=== PATIENT | female | born 1930 | race Caucasian/White ===

== ENCOUNTER 2017-12-20 18:21 | Inpatient (IN) | payer MEDICARE, OTHER ==
[2017-12-20] MEDS: HYDROCORTISONE 2.5% 30 GM RECT CR PR (22:12)
[2017-12-20] MEDS: ATORVASTATIN 20 MG TAB GTB (22:12)
[2017-12-20] MEDS ORDERED: ONDANSETRON 4 MG TAB GTB (22:30)
[2017-12-20] MEDS ORDERED: ALBUTEROL 0.083% (NEB) 2.5 MG/3 ML AMP HHN (22:30)
[2017-12-20 23:33] LABS: ADD UMIC YES; UR ASCORBIC ACID 40 mg/dL (NEGATIVE); UR BILIRUBIN (Dip) NEGATIVE (NEGATIVE); UR BLOOD (Dip) NEGATIVE (NEGATIVE); UR CLARITY CLEAR (CLEAR); UR COLOR YELLOW (YELLOW); UR GLUCOSE (Dip) NEGATIVE (NEGATIVE); UR KETONES (Dip) NEGATIVE (NEGATIVE); UR LEUKOCYTE ESTERASE (Dip) NEGATIVE Leu/ul (NEGATIVE); UR MUCUS FEW /HPF (NONE SEEN); UR NITRITE (Dip) NEGATIVE (NEGATIVE); UR RBC 3 /HPF (0-5); UR SPECIFIC GRAVITY (Dip) 1.025 (1.003-1.030); UR TOTAL PROTEIN (Dip) 1+ mg/dl (NEGATIVE); UR UROBILINOGEN (Dip) NEGATIVE (NEGATIVE); UR WBC 6 /HPF (0-5)
[2017-12-21] MEDS: FUROSEMIDE 20 MG INJ IV (06:00)
[2017-12-21] MEDS: PANTOPRAZOLE (EC) 40 MG TAB PO (06:51)
[2017-12-21] MEDS: HYDROCODONE/APAP (5/325) TAB GTB (06:51)
[2017-12-21 08:16] LABS: ADD MAN DIFF? NO
[2017-12-21 08:22] LABS: BASOPHIL # 0.1 10^3/ul (0.0-0.1); BASOPHILS % 0.6 % (0.0-2.0); EOSINOPHILS # 0.5 10^3/ul (0.0-0.5); EOSINOPHILS % 4.5 % (0.0-7.0); HEMATOCRIT 35.6 % (37.0-47.0); HEMOGLOBIN 11.4 g/dl (12.0-16.0); LYMPHOCYTES # 2.5 10^3/ul (0.8-2.9); LYMPHOCYTES % 22.4 % (15.0-51.0); MEAN CORPUSCULAR HEMOGLOBIN 30.7 pg (29.0-33.0); MEAN PLATELET VOLUME 11.5 fl (7.4-10.4); MONOCYTE # 0.8 10^3/ul (0.3-0.9); MONOCYTES % 6.9 % (0.0-11.0); NEUTROPHIL # 7.1 10^3/ul (1.6-7.5); NEUTROPHILS % 64.3 % (39.0-77.0); PLATELET COUNT 506 10^3/UL (140-415); RED BLOOD COUNT 3.71 10^6/ul (4.20-5.40); RED CELL DISTRIBUTION WIDTH 13.6 % (11.5-14.5)
[2017-12-21 08:41] LABS: ALANINE AMINOTRANSFERASE 84 IU/L (13-69); ALBUMIN 2.9 g/dl (3.3-4.9); ALKALINE PHOSPHATASE 157 IU/L (42-121); ANION GAP 10 (8-16); ASPARTATE AMINO TRANSFERASE 53 IU/L (15-46); BILIRUBIN,INDIRECT 0.1 mg/dl (0-1.1); BILIRUBIN,TOTAL 0.1 mg/dl (0.2-1.3); BLOOD UREA NITROGEN 41 mg/dl (7-20); CALCIUM 8.9 mg/dl (8.4-10.2); CARBON DIOXIDE 30 mmol/L (21-31); CHLORIDE 110 mmol/L (97-110); CREATININE 0.46 mg/dl (0.44-1.00); GLUCOSE 143 mg/dl (70-220); POTASSIUM 4.6 mmol/L (3.5-5.1); SODIUM 145 mmol/L (135-144); TOTAL PROTEIN 6.5 g/dl (6.1-8.1)
[2017-12-21] MEDS: HYDROCORTISONE 2.5% 30 GM RECT CR PR ×3 (09:23→21:12)
[2017-12-21] MEDS: POTASSIUM CHLORIDE 20 MEQ POWDER FOR ORAL SOLN GTB (09:23)
[2017-12-21] MEDS: SENNA TAB PO (09:24)
[2017-12-21] MEDS: AMLODIPINE 5 MG TAB GTB (09:24)
[2017-12-21] MEDS: ASPIRIN 81 MG TAB GTB (09:24)
[2017-12-21] MEDS: FUROSEMIDE 20 MG TAB GTB (09:24)
[2017-12-21] MEDS: ENOXAPARIN 40 MG/0.4 ML SYG SC (09:26)
[2017-12-21] MEDS ORDERED: ATORVASTATIN 20 MG TAB GTB (21:00)
[2017-12-21] MEDS: BALSAM PERU/CASTOR OIL 60 GM TUBE TOP (21:11)
[2017-12-21] MEDS: ATORVASTATIN 20 MG TAB GTB (21:11)
[2017-12-22] MEDS: ACETAMINOPHEN 650MG/20.3ML CUP GTB ×2 (03:40→21:07)
[2017-12-22] MEDS: PANTOPRAZOLE (EC) 40 MG TAB PO (06:00)
[2017-12-22 07:06] LABS: ADD MAN DIFF? NO
[2017-12-22 07:16] LABS: WHITE BLOOD COUNT 12.4 10^3/ul (4.8-10.8)
[2017-12-22 07:16] LABS: BASOPHILS % 0.3 % (0.0-2.0); EOSINOPHILS # 0.4 10^3/ul (0.0-0.5); EOSINOPHILS % 3.3 % (0.0-7.0); HEMATOCRIT 35.1 % (37.0-47.0); HEMOGLOBIN 11.3 g/dl (12.0-16.0); MEAN CORPUSCULAR HEMOGLOBIN 30.3 pg (29.0-33.0); MEAN CORPUSCULAR HGB CONC 32.2 g/dl (32.0-37.0); MEAN CORPUSCULAR VOLUME 94.1 fl (82.0-101.0); MEAN PLATELET VOLUME 11.3 fl (7.4-10.4); MONOCYTE # 0.8 10^3/ul (0.3-0.9); MONOCYTES % 6.3 % (0.0-11.0); NEUTROPHIL # 9.1 10^3/ul (1.6-7.5); PLATELET COUNT 488 10^3/UL (140-415); RED BLOOD COUNT 3.73 10^6/ul (4.20-5.40); RED CELL DISTRIBUTION WIDTH 13.9 % (11.5-14.5); RETICULOCYTE COUNT # 0.094 X10^6 (0.020-0.110); RETICULOCYTE COUNT % 2.5 % (0.5-1.5); RETICULOCYTE RBC 3.73
[2017-12-22 08:03] LABS: ALANINE AMINOTRANSFERASE 62 IU/L (13-69); ALBUMIN 3.1 g/dl (3.3-4.9); ALBUMIN/GLOBULIN RATIO 0.81; ALKALINE PHOSPHATASE 153 IU/L (42-121); ANION GAP 13 (8-16); ASPARTATE AMINO TRANSFERASE 43 IU/L (15-46); BILIRUBIN,INDIRECT 0.2 mg/dl (0-1.1); BILIRUBIN,TOTAL 0.2 mg/dl (0.2-1.3); BLOOD UREA NITROGEN 40 mg/dl (7-20); CALCIUM 8.9 mg/dl (8.4-10.2); CARBON DIOXIDE 30 mmol/L (21-31); CHLORIDE 105 mmol/L (97-110); CREATININE 0.45 mg/dl (0.44-1.00); GLUCOSE 131 mg/dl (70-220); POTASSIUM 4.5 mmol/L (3.5-5.1); SODIUM 143 mmol/L (135-144); TOTAL PROTEIN 6.9 g/dl (6.1-8.1)
[2017-12-22] MEDS: SENNA TAB PO (09:14)
[2017-12-22] MEDS: POTASSIUM CHLORIDE 20 MEQ POWDER FOR ORAL SOLN GTB (09:14)
[2017-12-22] MEDS: BALSAM PERU/CASTOR OIL 60 GM TUBE TOP ×2 (09:14→21:07)
[2017-12-22] MEDS: LANSOPRAZOLE 30 MG CAP GTB (09:14)
[2017-12-22] MEDS: ASPIRIN 81 MG TAB GTB (09:15)
[2017-12-22] MEDS: HYDROCORTISONE 2.5% 30 GM RECT CR PR ×3 (09:23→21:07)
[2017-12-22] MEDS: FUROSEMIDE 20 MG TAB GTB (09:25)
[2017-12-22] MEDS: AMLODIPINE 5 MG TAB GTB (09:25)
[2017-12-22] MEDS: ENOXAPARIN 40 MG/0.4 ML SYG SC (09:56)
[2017-12-22] MEDS: CEFEPIME 1GM/50 ML (PMX) 50 ML IVPB (17:10)
[2017-12-22] MEDS ORDERED: CEFEPIME 1GM/50 ML (PMX) 50 ML IVPB (21:00)
[2017-12-22] MEDS: ATORVASTATIN 20 MG TAB GTB (21:07)
[2017-12-23] MEDS: LANSOPRAZOLE 30 MG CAP GTB (06:06)
[2017-12-23] MEDS: ASPIRIN 81 MG TAB GTB (09:22)
[2017-12-23] MEDS: POTASSIUM CHLORIDE 20 MEQ POWDER FOR ORAL SOLN GTB (09:23)
[2017-12-23] MEDS: SENNA TAB PO (09:23)
[2017-12-23] MEDS: FUROSEMIDE 20 MG TAB GTB (09:23)
[2017-12-23] MEDS: AMLODIPINE 5 MG TAB GTB (09:23)
[2017-12-23] MEDS: HYDROCORTISONE 2.5% 30 GM RECT CR PR ×3 (09:24→21:22)
[2017-12-23] MEDS: BALSAM PERU/CASTOR OIL 60 GM TUBE TOP ×2 (09:24→21:21)
[2017-12-23] MEDS: ENOXAPARIN 40 MG/0.4 ML SYG SC (09:26)
[2017-12-23 17:15] LABS: OCCULT BLOOD STOOL NEGATIVE (NEGATIVE)
[2017-12-23] MEDS: CEFEPIME 1GM/50 ML (PMX) 50 ML IVPB (17:26)
[2017-12-23] MEDS: ATORVASTATIN 20 MG TAB GTB (20:47)
[2017-12-23] MEDS: ACETAMINOPHEN 650MG/20.3ML CUP GTB (20:47)
[2017-12-24] MEDS: LANSOPRAZOLE 30 MG CAP GTB (05:37)
[2017-12-24 07:01] LABS: ADD MAN DIFF? NO
[2017-12-24 07:04] LABS: WHITE BLOOD COUNT 10.9 10^3/ul (4.8-10.8)
[2017-12-24 07:04] LABS: BASOPHIL # 0.1 10^3/ul (0.0-0.1); BASOPHILS % 0.5 % (0.0-2.0); EOSINOPHILS # 0.4 10^3/ul (0.0-0.5); EOSINOPHILS % 3.9 % (0.0-7.0); HEMATOCRIT 34.4 % (37.0-47.0); HEMOGLOBIN 11.3 g/dl (12.0-16.0); LYMPHOCYTES % 18.1 % (15.0-51.0); MEAN CORPUSCULAR HEMOGLOBIN 31.1 pg (29.0-33.0); MEAN CORPUSCULAR HGB CONC 32.8 g/dl (32.0-37.0); MEAN CORPUSCULAR VOLUME 94.8 fl (82.0-101.0); MEAN PLATELET VOLUME 10.9 fl (7.4-10.4); MONOCYTE # 0.7 10^3/ul (0.3-0.9); MONOCYTES % 6.1 % (0.0-11.0); NEUTROPHIL # 7.6 10^3/ul (1.6-7.5); NEUTROPHILS % 69.5 % (39.0-77.0); PLATELET COUNT 475 10^3/UL (140-415); RED BLOOD COUNT 3.63 10^6/ul (4.20-5.40); RED CELL DISTRIBUTION WIDTH 13.5 % (11.5-14.5)
[2017-12-24 07:06] LABS: RETICULOCYTE COUNT # 0.099 X10^6 (0.020-0.110); RETICULOCYTE COUNT % 2.7 % (0.5-1.5)
[2017-12-24 07:06] LABS: RETICULOCYTE RBC 3.74
[2017-12-24 07:33] LABS: ALANINE AMINOTRANSFERASE 47 IU/L (13-69); ALBUMIN 2.9 g/dl (3.3-4.9); ALBUMIN/GLOBULIN RATIO 0.82; ALKALINE PHOSPHATASE 135 IU/L (42-121); ANION GAP 10 (8-16); ASPARTATE AMINO TRANSFERASE 32 IU/L (15-46); BILIRUBIN,INDIRECT 0.2 mg/dl (0-1.1); BILIRUBIN,TOTAL 0.2 mg/dl (0.2-1.3); BLOOD UREA NITROGEN 25 mg/dl (7-20); CALCIUM 8.6 mg/dl (8.4-10.2); CARBON DIOXIDE 27 mmol/L (21-31); CHLORIDE 106 mmol/L (97-110); CREATININE 0.41 mg/dl (0.44-1.00); GLUCOSE 119 mg/dl (70-220); POTASSIUM 4.1 mmol/L (3.5-5.1); SODIUM 139 mmol/L (135-144); TOTAL PROTEIN 6.4 g/dl (6.1-8.1)
[2017-12-24 08:02] LABS: PHOSPHORUS 3.2 mg/dl (2.5-4.9)
[2017-12-24 09:10] LABS: FOLATE > 20.0 ng/ml (2.8-20.0)
[2017-12-24] MEDS: POTASSIUM CHLORIDE 20 MEQ POWDER FOR ORAL SOLN GTB (09:16)
[2017-12-24] MEDS: ASPIRIN 81 MG TAB GTB (09:17)
[2017-12-24] MEDS: SENNA TAB PO (09:17)
[2017-12-24] MEDS: AMLODIPINE 5 MG TAB GTB (09:17)
[2017-12-24] MEDS: FUROSEMIDE 20 MG TAB GTB (09:18)
[2017-12-24] MEDS: ENOXAPARIN 40 MG/0.4 ML SYG SC (09:29)
[2017-12-24 10:04] LABS: IRON 46 ug/dl (35-150)
[2017-12-24 10:13] LABS: % IRON SATURATION 20 % SAT (22-52); TOTAL IRON BINDING CAPACITY 234 ug/dl (241-421)
[2017-12-24] MEDS: BALSAM PERU/CASTOR OIL 60 GM TUBE TOP ×2 (12:35→21:05)
[2017-12-24] MEDS: HYDROCORTISONE 2.5% 30 GM RECT CR PR ×3 (12:35→21:06)
[2017-12-24] MEDS: CEFEPIME 1GM/50 ML (PMX) 50 ML IVPB (17:23)
[2017-12-24] MEDS: ATORVASTATIN 20 MG TAB GTB (21:04)
[2017-12-24] MEDS: ACETAMINOPHEN 650MG/20.3ML CUP GTB (21:04)
[2017-12-25] MEDS: LANSOPRAZOLE 30 MG CAP GTB (05:41)
[2017-12-25] MEDS: ASPIRIN 81 MG TAB GTB (08:38)
[2017-12-25] MEDS: POTASSIUM CHLORIDE 20 MEQ POWDER FOR ORAL SOLN GTB (08:39)
[2017-12-25] MEDS: AMLODIPINE 5 MG TAB GTB (08:39)
[2017-12-25] MEDS: FUROSEMIDE 20 MG TAB GTB (08:39)
[2017-12-25] MEDS: SENNA TAB PO (08:42)
[2017-12-25] MEDS: ENOXAPARIN 40 MG/0.4 ML SYG SC (08:48)
[2017-12-25] MEDS: HYDROCORTISONE 2.5% 30 GM RECT CR PR ×3 (08:49→20:47)
[2017-12-25] MEDS: BALSAM PERU/CASTOR OIL 60 GM TUBE TOP ×2 (08:50→20:47)
[2017-12-25] MEDS: ACETAMINOPHEN 650MG/20.3ML CUP GTB ×2 (10:23→20:36)
[2017-12-25] MEDS: CEFEPIME 1GM/50 ML (PMX) 50 ML IVPB (16:26)
[2017-12-25] MEDS: ATORVASTATIN 20 MG TAB GTB (20:36)
[2017-12-26] MEDS: ACETAMINOPHEN 650MG/20.3ML CUP GTB ×3 (00:42→20:58)
[2017-12-26] MEDS: LANSOPRAZOLE 30 MG CAP GTB (06:11)
[2017-12-26 07:23] LABS: ADD MAN DIFF? NO
[2017-12-26 07:26] LABS: ALANINE AMINOTRANSFERASE 45 IU/L (13-69); ALBUMIN 3.5 g/dl (3.3-4.9); ALBUMIN/GLOBULIN RATIO 0.94; ALKALINE PHOSPHATASE 150 IU/L (42-121); ASPARTATE AMINO TRANSFERASE 41 IU/L (15-46); BILIRUBIN,INDIRECT 0.2 mg/dl (0-1.1); BILIRUBIN,TOTAL 0.2 mg/dl (0.2-1.3); BLOOD UREA NITROGEN 25 mg/dl (7-20); CALCIUM 9.3 mg/dl (8.4-10.2); CARBON DIOXIDE 29 mmol/L (21-31); CHLORIDE 103 mmol/L (97-110); CREATININE 0.42 mg/dl (0.44-1.00); GLUCOSE 102 mg/dl (70-220); SODIUM 138 mmol/L (135-144); TOTAL PROTEIN 7.2 g/dl (6.1-8.1)
[2017-12-26 07:27] LABS: BASOPHIL # 0.1 10^3/ul (0.0-0.1); BASOPHILS % 0.9 % (0.0-2.0); EOSINOPHILS # 0.4 10^3/ul (0.0-0.5); EOSINOPHILS % 3.6 % (0.0-7.0); HEMATOCRIT 36.4 % (37.0-47.0); HEMOGLOBIN 11.8 g/dl (12.0-16.0); LYMPHOCYTES # 2.4 10^3/ul (0.8-2.9); LYMPHOCYTES % 24.6 % (15.0-51.0); MEAN CORPUSCULAR HEMOGLOBIN 30.6 pg (29.0-33.0); MEAN CORPUSCULAR HGB CONC 32.4 g/dl (32.0-37.0); MEAN CORPUSCULAR VOLUME 94.3 fl (82.0-101.0); MEAN PLATELET VOLUME 10.8 fl (7.4-10.4); MONOCYTE # 0.8 10^3/ul (0.3-0.9); MONOCYTES % 8.6 % (0.0-11.0); NEUTROPHIL # 5.8 10^3/ul (1.6-7.5); NEUTROPHILS % 60.1 % (39.0-77.0); PLATELET COUNT 514 10^3/UL (140-415); RED BLOOD COUNT 3.86 10^6/ul (4.20-5.40); RED CELL DISTRIBUTION WIDTH 13.5 % (11.5-14.5)
[2017-12-26 07:27] LABS: WHITE BLOOD COUNT 9.7 10^3/ul (4.8-10.8)
[2017-12-26 07:36] LABS: ANION GAP 11 (8-16); POTASSIUM 4.6 mmol/L (3.5-5.1)
[2017-12-26] MEDS: HYDROCORTISONE 2.5% 30 GM RECT CR PR ×3 (09:00→20:59)
[2017-12-26] MEDS: BALSAM PERU/CASTOR OIL 60 GM TUBE TOP ×2 (09:00→20:59)
[2017-12-26] MEDS: POTASSIUM CHLORIDE 20 MEQ POWDER FOR ORAL SOLN GTB (11:38)
[2017-12-26] MEDS: ENOXAPARIN 40 MG/0.4 ML SYG SC (11:38)
[2017-12-26] MEDS: SENNA TAB PO (11:38)
[2017-12-26] MEDS: FUROSEMIDE 20 MG TAB GTB (11:39)
[2017-12-26] MEDS: AMLODIPINE 5 MG TAB GTB (11:39)
[2017-12-26] MEDS: ASPIRIN 81 MG TAB GTB (11:39)
[2017-12-26] MEDS: CEFEPIME 1GM/50 ML (PMX) 50 ML IVPB (18:13)
[2017-12-26] MEDS: ATORVASTATIN 20 MG TAB GTB (20:58)
[2017-12-27] MEDS: ACETAMINOPHEN 650MG/20.3ML CUP GTB ×2 (06:31→20:22)
[2017-12-27] MEDS: LANSOPRAZOLE 30 MG CAP GTB (06:32)
[2017-12-27] MEDS: SENNA TAB PO (09:00)
[2017-12-27] MEDS: HYDROCORTISONE 2.5% 30 GM RECT CR PR ×4 (09:00→20:22)
[2017-12-27] MEDS: POTASSIUM CHLORIDE 20 MEQ POWDER FOR ORAL SOLN GTB (09:30)
[2017-12-27] MEDS: AMLODIPINE 5 MG TAB GTB (09:31)
[2017-12-27] MEDS: FUROSEMIDE 20 MG TAB GTB (09:31)
[2017-12-27] MEDS: ASPIRIN 81 MG TAB GTB (09:31)
[2017-12-27] MEDS: ENOXAPARIN 40 MG/0.4 ML SYG SC (09:32)
[2017-12-27] MEDS: BALSAM PERU/CASTOR OIL 60 GM TUBE TOP ×2 (09:36→20:22)
[2017-12-27] MEDS: ATORVASTATIN 20 MG TAB GTB (20:22)
[2017-12-27] MEDS: GUAIFENESIN/DM 5ML CUP PO (20:33)
[2017-12-28] MEDS: LANSOPRAZOLE 30 MG CAP GTB (06:24)
[2017-12-28] MEDS: SENNA TAB PO (09:00)
[2017-12-28] MEDS: BALSAM PERU/CASTOR OIL 60 GM TUBE TOP ×2 (09:26→21:08)
[2017-12-28] MEDS: HYDROCORTISONE 2.5% 30 GM RECT CR PR ×3 (09:27→21:00)
[2017-12-28] MEDS: POTASSIUM CHLORIDE 20 MEQ POWDER FOR ORAL SOLN GTB (09:27)
[2017-12-28] MEDS: AMLODIPINE 5 MG TAB GTB (09:27)
[2017-12-28] MEDS: ASPIRIN 81 MG TAB GTB (09:27)
[2017-12-28] MEDS: FUROSEMIDE 20 MG TAB GTB (09:28)
[2017-12-28] MEDS: ENOXAPARIN 40 MG/0.4 ML SYG SC (09:29)
[2017-12-28 11:35] LABS: ADD MAN DIFF? NO
[2017-12-28 11:38] LABS: BASOPHIL # 0.1 10^3/ul (0.0-0.1); BASOPHILS % 0.6 % (0.0-2.0); EOSINOPHILS # 0.2 10^3/ul (0.0-0.5); EOSINOPHILS % 2.1 % (0.0-7.0); HEMATOCRIT 37.5 % (37.0-47.0); HEMOGLOBIN 12.2 g/dl (12.0-16.0); LYMPHOCYTES # 2.8 10^3/ul (0.8-2.9); LYMPHOCYTES % 26.2 % (15.0-51.0); MEAN CORPUSCULAR HEMOGLOBIN 30.4 pg (29.0-33.0); MEAN CORPUSCULAR HGB CONC 32.5 g/dl (32.0-37.0); MEAN CORPUSCULAR VOLUME 93.5 fl (82.0-101.0); MEAN PLATELET VOLUME 10.3 fl (7.4-10.4); MONOCYTE # 0.8 10^3/ul (0.3-0.9); MONOCYTES % 7.7 % (0.0-11.0); NEUTROPHIL # 6.6 10^3/ul (1.6-7.5); NEUTROPHILS % 61.7 % (39.0-77.0); PLATELET COUNT 510 10^3/UL (140-415); RED BLOOD COUNT 4.01 10^6/ul (4.20-5.40)
[2017-12-28 11:38] LABS: WHITE BLOOD COUNT 10.6 10^3/ul (4.8-10.8)
[2017-12-28 11:56] LABS: PHOSPHORUS 3.8 mg/dl (2.5-4.9)
[2017-12-28 11:56] LABS: MAGNESIUM 1.9 mg/dl (1.7-2.5)
[2017-12-28 11:57] LABS: ANION GAP 12 (8-16); BLOOD UREA NITROGEN 22 mg/dl (7-20); CALCIUM 9.5 mg/dl (8.4-10.2); CARBON DIOXIDE 30 mmol/L (21-31); CHLORIDE 100 mmol/L (97-110); CREATININE 0.41 mg/dl (0.44-1.00); GLUCOSE 110 mg/dl (70-220); POTASSIUM 5.2 mmol/L (3.5-5.1); SODIUM 137 mmol/L (135-144)
[2017-12-28] MEDS: ACETAMINOPHEN 650MG/20.3ML CUP GTB ×2 (14:05→21:00)
[2017-12-28] MEDS: ATORVASTATIN 20 MG TAB GTB (21:00)
[2017-12-29] MEDS: LANSOPRAZOLE 30 MG CAP GTB (06:27)
[2017-12-29] MEDS: ENOXAPARIN 40 MG/0.4 ML SYG SC (08:38)
[2017-12-29] MEDS: BALSAM PERU/CASTOR OIL 60 GM TUBE TOP (08:40)
[2017-12-29] MEDS: SENNA TAB PO (08:41)
[2017-12-29] MEDS: ASPIRIN 81 MG TAB GTB (08:41)
[2017-12-29] MEDS: FUROSEMIDE 20 MG TAB GTB (08:41)
[2017-12-29] MEDS: AMLODIPINE 5 MG TAB GTB (08:41)
[2017-12-29] MEDS: HYDROCORTISONE 2.5% 30 GM RECT CR PR ×3 (08:41→20:45)
[2017-12-29] MEDS: ESCITALOPRAM 10 MG TAB PO (08:41)
[2017-12-29] MEDS: ACETAMINOPHEN 650MG/20.3ML CUP GTB ×2 (12:53→20:44)
[2017-12-29] MEDS: ATORVASTATIN 20 MG TAB GTB (20:45)
[2017-12-30] MEDS: LANSOPRAZOLE 30 MG CAP GTB (05:14)
[2017-12-30 06:34] LABS: ADD MAN DIFF? NO
[2017-12-30 06:46] LABS: WHITE BLOOD COUNT 11.8 10^3/ul (4.8-10.8)
[2017-12-30 06:46] LABS: BASOPHIL # 0.1 10^3/ul (0.0-0.1); BASOPHILS % 0.5 % (0.0-2.0); EOSINOPHILS # 0.2 10^3/ul (0.0-0.5); EOSINOPHILS % 1.5 % (0.0-7.0); HEMATOCRIT 36.2 % (37.0-47.0); HEMOGLOBIN 11.9 g/dl (12.0-16.0); LYMPHOCYTES # 2.8 10^3/ul (0.8-2.9); LYMPHOCYTES % 23.7 % (15.0-51.0); MEAN CORPUSCULAR HEMOGLOBIN 30.9 pg (29.0-33.0); MEAN CORPUSCULAR HGB CONC 32.9 g/dl (32.0-37.0); MEAN PLATELET VOLUME 10.3 fl (7.4-10.4); MONOCYTE # 0.9 10^3/ul (0.3-0.9); MONOCYTES % 7.6 % (0.0-11.0); NEUTROPHIL # 7.8 10^3/ul (1.6-7.5); NEUTROPHILS % 65.9 % (39.0-77.0); PLATELET COUNT 430 10^3/UL (140-415); RED BLOOD COUNT 3.85 10^6/ul (4.20-5.40)
[2017-12-30 07:05] LABS: PHOSPHORUS 3.7 mg/dl (2.5-4.9)
[2017-12-30 07:05] LABS: MAGNESIUM 1.9 mg/dl (1.7-2.5)
[2017-12-30 07:08] LABS: ANION GAP 11 (8-16); BLOOD UREA NITROGEN 22 mg/dl (7-20); CALCIUM 9.1 mg/dl (8.4-10.2); CARBON DIOXIDE 29 mmol/L (21-31); CHLORIDE 102 mmol/L (97-110); CREATININE 0.36 mg/dl (0.44-1.00); GLUCOSE 122 mg/dl (70-220); POTASSIUM 4.5 mmol/L (3.5-5.1); SODIUM 137 mmol/L (135-144)
[2017-12-30 07:15] LABS: TROPONIN-I 0.021 ng/ml (0.000-0.120)
[2017-12-30] MEDS: COLLAGENASE 5 GM (UD JAR) TOP (10:17)
[2017-12-30] MEDS: ASPIRIN 81 MG TAB GTB (10:17)
[2017-12-30] MEDS: ESCITALOPRAM 10 MG TAB PO (10:17)
[2017-12-30] MEDS: ENOXAPARIN 40 MG/0.4 ML SYG SC (10:17)
[2017-12-30] MEDS: AMLODIPINE 5 MG TAB GTB (10:18)
[2017-12-30] MEDS: FUROSEMIDE 20 MG TAB GTB (10:18)
[2017-12-30] MEDS: SENNA TAB PO (10:18)
[2017-12-30] MEDS: HYDROCORTISONE 2.5% 30 GM RECT CR PR ×3 (10:18→20:13)
[2017-12-30] MEDS: ATORVASTATIN 20 MG TAB GTB (20:13)
[2017-12-30] MEDS: ACETAMINOPHEN 650MG/20.3ML CUP GTB (20:13)
[2017-12-31] MEDS: LANSOPRAZOLE 30 MG CAP GTB (05:38)
[2017-12-31] MEDS: SENNA TAB PO (09:00)
[2017-12-31] MEDS: ASPIRIN 81 MG TAB GTB (09:45)
[2017-12-31] MEDS: ESCITALOPRAM 10 MG TAB PO (09:45)
[2017-12-31] MEDS: AMLODIPINE 5 MG TAB GTB (09:45)
[2017-12-31] MEDS: ENOXAPARIN 40 MG/0.4 ML SYG SC (09:46)
[2017-12-31] MEDS: HYDROCORTISONE 2.5% 30 GM RECT CR PR ×3 (09:46→21:28)
[2017-12-31] MEDS: COLLAGENASE 5 GM (UD JAR) TOP (09:47)
[2017-12-31] MEDS: FUROSEMIDE 20 MG TAB GTB (09:47)
[2017-12-31] MEDS: ACETAMINOPHEN 650MG/20.3ML CUP GTB (18:27)
[2017-12-31] MEDS: METOPROLOL 25 MG TAB GTB (21:28)
[2017-12-31] MEDS: ATORVASTATIN 20 MG TAB GTB (21:28)
[2018-01-01] MEDS: LANSOPRAZOLE 30 MG CAP GTB (05:37)
[2018-01-01 07:08] LABS: ADD MAN DIFF? NO
[2018-01-01 07:12] LABS: WHITE BLOOD COUNT 8.6 10^3/ul (4.8-10.8)
[2018-01-01 07:12] LABS: BASOPHIL # 0.1 10^3/ul (0.0-0.1); BASOPHILS % 0.7 % (0.0-2.0); EOSINOPHILS # 0.1 10^3/ul (0.0-0.5); EOSINOPHILS % 1.6 % (0.0-7.0); HEMATOCRIT 36.5 % (37.0-47.0); HEMOGLOBIN 11.7 g/dl (12.0-16.0); LYMPHOCYTES # 2.3 10^3/ul (0.8-2.9); LYMPHOCYTES % 27.3 % (15.0-51.0); MEAN CORPUSCULAR HEMOGLOBIN 30.1 pg (29.0-33.0); MEAN CORPUSCULAR HGB CONC 32.1 g/dl (32.0-37.0); MEAN CORPUSCULAR VOLUME 93.8 fl (82.0-101.0); MEAN PLATELET VOLUME 10.6 fl (7.4-10.4); MONOCYTE # 0.7 10^3/ul (0.3-0.9); MONOCYTES % 8.1 % (0.0-11.0); NEUTROPHIL # 5.3 10^3/ul (1.6-7.5); NEUTROPHILS % 61.4 % (39.0-77.0); PLATELET COUNT 368 10^3/UL (140-415); RED BLOOD COUNT 3.89 10^6/ul (4.20-5.40); RED CELL DISTRIBUTION WIDTH 14.2 % (11.5-14.5)
[2018-01-01 07:31] LABS: MAGNESIUM 1.9 mg/dl (1.7-2.5)
[2018-01-01 07:31] LABS: PHOSPHORUS 4.2 mg/dl (2.5-4.9)
[2018-01-01 07:38] LABS: ANION GAP 12 (8-16); BLOOD UREA NITROGEN 23 mg/dl (7-20); CALCIUM 9.3 mg/dl (8.4-10.2); CARBON DIOXIDE 30 mmol/L (21-31); CHLORIDE 100 mmol/L (97-110); CREATININE 0.42 mg/dl (0.44-1.00); GLUCOSE 128 mg/dl (70-220); POTASSIUM 4.1 mmol/L (3.5-5.1); SODIUM 138 mmol/L (135-144)
[2018-01-01] MEDS: COLLAGENASE 5 GM (UD JAR) TOP (09:00)
[2018-01-01] MEDS: SENNA TAB PO (09:00)
[2018-01-01] MEDS: ESCITALOPRAM 10 MG TAB PO (09:01)
[2018-01-01] MEDS: AMLODIPINE 5 MG TAB GTB (09:02)
[2018-01-01] MEDS: METOPROLOL 25 MG TAB GTB ×2 (09:02→21:26)
[2018-01-01] MEDS: ASCORBIC ACID 500 MG TAB GTB (09:02)
[2018-01-01] MEDS: HYDROCORTISONE 2.5% 30 GM RECT CR PR ×3 (09:03→21:44)
[2018-01-01] MEDS: ASPIRIN 81 MG TAB GTB (09:03)
[2018-01-01] MEDS: FUROSEMIDE 20 MG TAB GTB (09:03)
[2018-01-01] MEDS: ENOXAPARIN 40 MG/0.4 ML SYG SC (09:20)
[2018-01-01] MEDS: ACETAMINOPHEN 650MG/20.3ML CUP GTB (21:25)
[2018-01-01] MEDS: ATORVASTATIN 20 MG TAB GTB (21:25)
[2018-01-01] MEDS: TAMSULOSIN (SR) 0.4 MG CAP PO (21:26)
[2018-01-02] MEDS: LANSOPRAZOLE 30 MG CAP GTB (06:49)
[2018-01-02] MEDS: HYDROCORTISONE 2.5% 30 GM RECT CR PR ×3 (09:17→20:45)
[2018-01-02] MEDS: COLLAGENASE 5 GM (UD JAR) TOP (09:18)
[2018-01-02] MEDS: AMLODIPINE 5 MG TAB GTB (09:19)
[2018-01-02] MEDS: ASPIRIN 81 MG TAB GTB (09:19)
[2018-01-02] MEDS: ENOXAPARIN 40 MG/0.4 ML SYG SC (09:19)
[2018-01-02] MEDS: FUROSEMIDE 20 MG TAB GTB (09:19)
[2018-01-02] MEDS: ASCORBIC ACID 500 MG TAB GTB (09:19)
[2018-01-02] MEDS: ESCITALOPRAM 10 MG TAB PO (09:20)
[2018-01-02] MEDS: METOPROLOL 25 MG TAB GTB ×2 (09:20→20:45)
[2018-01-02] MEDS: ATORVASTATIN 20 MG TAB GTB (20:44)
[2018-01-02] MEDS: ACETAMINOPHEN 650MG/20.3ML CUP GTB (20:44)
[2018-01-02] MEDS: TAMSULOSIN (SR) 0.4 MG CAP PO (20:45)
[2018-01-02] MEDS: BETHANECHOL 10 MG TAB PO (20:45)
[2018-01-03] MEDS: LANSOPRAZOLE 30 MG CAP GTB (06:21)
[2018-01-03] MEDS: COLLAGENASE 5 GM (UD JAR) TOP (08:52)
[2018-01-03] MEDS: ENOXAPARIN 40 MG/0.4 ML SYG SC (08:53)
[2018-01-03] MEDS: HYDROCORTISONE 2.5% 30 GM RECT CR PR ×3 (08:53→20:53)
[2018-01-03] MEDS: ASPIRIN 81 MG TAB GTB (08:54)
[2018-01-03] MEDS: FUROSEMIDE 20 MG TAB GTB (08:54)
[2018-01-03] MEDS: ESCITALOPRAM 10 MG TAB PO (08:54)
[2018-01-03] MEDS: BETHANECHOL 10 MG TAB PO ×3 (08:55→20:53)
[2018-01-03] MEDS: METOPROLOL 25 MG TAB GTB ×2 (08:55→20:53)
[2018-01-03] MEDS: ASCORBIC ACID 500 MG TAB GTB (08:55)
[2018-01-03] MEDS: AMLODIPINE 5 MG TAB GTB (08:55)
[2018-01-03] MEDS: ACETAMINOPHEN 650MG/20.3ML CUP GTB ×2 (11:19→20:52)
[2018-01-03] MEDS: ATORVASTATIN 20 MG TAB GTB (20:53)
[2018-01-03] MEDS: TAMSULOSIN (SR) 0.4 MG CAP PO (20:53)
[2018-01-04] MEDS: LANSOPRAZOLE 30 MG CAP GTB (05:43)
[2018-01-04] MEDS: ENOXAPARIN 40 MG/0.4 ML SYG SC ×2 (09:00→18:44)
[2018-01-04] MEDS: ASPIRIN 81 MG TAB GTB ×2 (09:00→18:43)
[2018-01-04] MEDS: ESCITALOPRAM 10 MG TAB PO (09:34)
[2018-01-04] MEDS: HYDROCORTISONE 2.5% 30 GM RECT CR PR ×3 (09:34→21:00)
[2018-01-04] MEDS: AMLODIPINE 5 MG TAB GTB (09:35)
[2018-01-04] MEDS: BETHANECHOL 10 MG TAB PO ×3 (09:35→21:06)
[2018-01-04] MEDS: ASCORBIC ACID 500 MG TAB GTB (09:35)
[2018-01-04] MEDS: FUROSEMIDE 20 MG TAB GTB (09:35)
[2018-01-04] MEDS: COLLAGENASE 5 GM (UD JAR) TOP (09:36)
[2018-01-04] MEDS: METOPROLOL 25 MG TAB GTB ×2 (09:36→21:06)
[2018-01-04] MEDS ORDERED: ONDANSETRON 4 MG INJ IV (17:30)
[2018-01-04] MEDS ORDERED: FENTAnyl 50 MCG/ML VIAL IV ×3 (17:30)
[2018-01-04] MEDS: PROPOFOL 20 ML (17:34)
[2018-01-04] MEDS: ATORVASTATIN 20 MG TAB GTB (21:06)
[2018-01-04] MEDS: TAMSULOSIN (SR) 0.4 MG CAP PO (21:06)
[2018-01-05] MEDS: LANSOPRAZOLE 30 MG CAP GTB (06:43)
[2018-01-05] MEDS: BETHANECHOL 10 MG TAB PO ×3 (08:59→20:03)
[2018-01-05] MEDS: ASCORBIC ACID 500 MG TAB GTB (08:59)
[2018-01-05] MEDS: ENOXAPARIN 40 MG/0.4 ML SYG SC (08:59)
[2018-01-05] MEDS: ASPIRIN 81 MG TAB GTB (09:00)
[2018-01-05] MEDS: FUROSEMIDE 20 MG TAB GTB (09:00)
[2018-01-05] MEDS: METOPROLOL 25 MG TAB GTB ×2 (09:00→20:03)
[2018-01-05] MEDS: COLLAGENASE 5 GM (UD JAR) TOP (09:00)
[2018-01-05] MEDS: AMLODIPINE 5 MG TAB GTB (09:00)
[2018-01-05] MEDS: ESCITALOPRAM 10 MG TAB PO (09:00)
[2018-01-05] MEDS: HYDROCORTISONE 2.5% 30 GM RECT CR PR ×3 (09:02→20:13)
[2018-01-05] MEDS: ATORVASTATIN 20 MG TAB GTB (20:03)
[2018-01-05] MEDS: TAMSULOSIN (SR) 0.4 MG CAP PO (20:03)
[2018-01-05] MEDS: ACETAMINOPHEN 650MG/20.3ML CUP GTB (20:03)
[2018-01-06] MEDS: LANSOPRAZOLE 30 MG CAP GTB (06:04)
[2018-01-06] MEDS: ASPIRIN 81 MG TAB GTB (10:17)
[2018-01-06] MEDS: ASCORBIC ACID 500 MG TAB GTB (10:17)
[2018-01-06] MEDS: BETHANECHOL 10 MG TAB PO ×3 (10:17→20:57)
[2018-01-06] MEDS: COLLAGENASE 5 GM (UD JAR) TOP (10:18)
[2018-01-06] MEDS: ENOXAPARIN 40 MG/0.4 ML SYG SC (10:24)
[2018-01-06] MEDS: HYDROCORTISONE 2.5% 30 GM RECT CR PR ×3 (10:25→20:57)
[2018-01-06] MEDS: METOPROLOL 25 MG TAB GTB ×2 (10:28→20:58)
[2018-01-06] MEDS: FUROSEMIDE 20 MG TAB GTB (10:29)
[2018-01-06] MEDS: ESCITALOPRAM 10 MG TAB PO (10:29)
[2018-01-06] MEDS: AMLODIPINE 5 MG TAB GTB (10:29)
[2018-01-06] MEDS: TAMSULOSIN (SR) 0.4 MG CAP PO (20:57)
[2018-01-06] MEDS: ATORVASTATIN 20 MG TAB GTB (20:57)
[2018-01-06] MEDS: ACETAMINOPHEN 650MG/20.3ML CUP GTB (20:57)
[2018-01-07] MEDS: LANSOPRAZOLE 30 MG CAP GTB (05:41)
[2018-01-07] MEDS: AMLODIPINE 5 MG TAB GTB (08:59)
[2018-01-07] MEDS: METOPROLOL 25 MG TAB GTB ×2 (08:59→21:35)
[2018-01-07] MEDS: FUROSEMIDE 20 MG TAB GTB (09:00)
[2018-01-07] MEDS: ASCORBIC ACID 500 MG TAB GTB (09:14)
[2018-01-07] MEDS: BETHANECHOL 10 MG TAB PO ×3 (09:14→21:34)
[2018-01-07] MEDS: ASPIRIN 81 MG TAB GTB (09:14)
[2018-01-07] MEDS: ESCITALOPRAM 10 MG TAB PO (09:15)
[2018-01-07] MEDS: ENOXAPARIN 40 MG/0.4 ML SYG SC (09:17)
[2018-01-07] MEDS: COLLAGENASE 5 GM (UD JAR) TOP (09:21)
[2018-01-07] MEDS: HYDROCORTISONE 2.5% 30 GM RECT CR PR ×3 (09:21→21:33)
[2018-01-07] MEDS: TAMSULOSIN (SR) 0.4 MG CAP PO (21:34)
[2018-01-07] MEDS: ACETAMINOPHEN 650MG/20.3ML CUP GTB (21:34)
[2018-01-07] MEDS: ATORVASTATIN 20 MG TAB GTB (21:35)
[2018-01-08 06:50] LABS: ADD MAN DIFF? NO
[2018-01-08] MEDS: LANSOPRAZOLE 30 MG CAP GTB (06:52)
[2018-01-08 06:54] LABS: BASOPHILS % 0.3 % (0.0-2.0); EOSINOPHILS # 0.2 10^3/ul (0.0-0.5); EOSINOPHILS % 1.7 % (0.0-7.0); HEMATOCRIT 32.4 % (37.0-47.0); HEMOGLOBIN 10.6 g/dl (12.0-16.0); LYMPHOCYTES # 2.4 10^3/ul (0.8-2.9); LYMPHOCYTES % 27.1 % (15.0-51.0); MEAN CORPUSCULAR HGB CONC 32.7 g/dl (32.0-37.0); MEAN CORPUSCULAR VOLUME 94.7 fl (82.0-101.0); MEAN PLATELET VOLUME 10.6 fl (7.4-10.4); MONOCYTE # 0.9 10^3/ul (0.3-0.9); MONOCYTES % 10.5 % (0.0-11.0); NEUTROPHIL # 5.3 10^3/ul (1.6-7.5); NEUTROPHILS % 59.7 % (39.0-77.0); PLATELET COUNT 248 10^3/UL (140-415); RED BLOOD COUNT 3.42 10^6/ul (4.20-5.40); RED CELL DISTRIBUTION WIDTH 14.1 % (11.5-14.5)
[2018-01-08 06:54] LABS: WHITE BLOOD COUNT 8.9 10^3/ul (4.8-10.8)
[2018-01-08 07:14] LABS: PHOSPHORUS 3.9 mg/dl (2.5-4.9)
[2018-01-08 07:18] LABS: ALANINE AMINOTRANSFERASE 25 IU/L (13-69); ALBUMIN/GLOBULIN RATIO 1.03; ALKALINE PHOSPHATASE 97 IU/L (42-121); ANION GAP 14 (8-16); ASPARTATE AMINO TRANSFERASE 19 IU/L (15-46); BILIRUBIN,INDIRECT 0.1 mg/dl (0-1.1); BILIRUBIN,TOTAL 0.1 mg/dl (0.2-1.3); BLOOD UREA NITROGEN 19 mg/dl (7-20); CALCIUM 8.9 mg/dl (8.4-10.2); CARBON DIOXIDE 31 mmol/L (21-31); CHLORIDE 100 mmol/L (97-110); CREATININE 0.41 mg/dl (0.44-1.00); GLUCOSE 126 mg/dl (70-220); SODIUM 141 mmol/L (135-144); TOTAL PROTEIN 5.9 g/dl (6.1-8.1)
[2018-01-08] MEDS: ASPIRIN 81 MG TAB GTB (08:56)
[2018-01-08] MEDS: FUROSEMIDE 20 MG TAB GTB (08:56)
[2018-01-08] MEDS: METOPROLOL 25 MG TAB GTB ×2 (08:57→21:31)
[2018-01-08] MEDS: AMLODIPINE 5 MG TAB GTB (08:57)
[2018-01-08] MEDS: ASCORBIC ACID 500 MG TAB GTB (08:57)
[2018-01-08] MEDS: HYDROCORTISONE 2.5% 30 GM RECT CR PR ×3 (08:58→21:32)
[2018-01-08] MEDS: BETHANECHOL 10 MG TAB PO ×3 (08:58→21:31)
[2018-01-08] MEDS: ESCITALOPRAM 10 MG TAB PO (08:58)
[2018-01-08] MEDS: ENOXAPARIN 40 MG/0.4 ML SYG SC (09:00)
[2018-01-08] MEDS: COLLAGENASE 5 GM (UD JAR) TOP (09:00)
[2018-01-08] MEDS: TAMSULOSIN (SR) 0.4 MG CAP PO (21:31)
[2018-01-08] MEDS: ATORVASTATIN 20 MG TAB GTB (21:31)
[2018-01-09] MEDS: LANSOPRAZOLE 30 MG CAP GTB (05:52)
[2018-01-09] MEDS: COLLAGENASE 5 GM (UD JAR) TOP (09:17)
[2018-01-09] MEDS: HYDROCORTISONE 2.5% 30 GM RECT CR PR ×2 (09:17→13:00)
[2018-01-09] MEDS: ESCITALOPRAM 10 MG TAB PO (09:18)
[2018-01-09] MEDS: METOPROLOL 25 MG TAB GTB ×2 (09:18→21:40)
[2018-01-09] MEDS: FUROSEMIDE 20 MG TAB GTB (09:19)
[2018-01-09] MEDS: AMLODIPINE 5 MG TAB GTB (09:19)
[2018-01-09] MEDS: BETHANECHOL 10 MG TAB PO ×3 (09:19→21:38)
[2018-01-09] MEDS: ASCORBIC ACID 500 MG TAB GTB (09:19)
[2018-01-09] MEDS: ASPIRIN 81 MG TAB GTB (09:19)
[2018-01-09] MEDS: ENOXAPARIN 40 MG/0.4 ML SYG SC (09:26)
[2018-01-09] MEDS: TAMSULOSIN (SR) 0.4 MG CAP PO (21:38)
[2018-01-09] MEDS: ACETAMINOPHEN 650MG/20.3ML CUP GTB (21:38)
[2018-01-09] MEDS: ATORVASTATIN 20 MG TAB GTB (21:39)
[2018-01-10] MEDS: LANSOPRAZOLE 30 MG CAP GTB (06:39)
[2018-01-10] MEDS: COLLAGENASE 5 GM (UD JAR) TOP (09:30)
[2018-01-10] MEDS: ASCORBIC ACID 500 MG TAB GTB (09:31)
[2018-01-10] MEDS: ESCITALOPRAM 10 MG TAB PO (09:31)
[2018-01-10] MEDS: AMLODIPINE 5 MG TAB GTB (09:31)
[2018-01-10] MEDS: ASPIRIN 81 MG TAB GTB (09:31)
[2018-01-10] MEDS: FUROSEMIDE 20 MG TAB GTB (09:31)
[2018-01-10] MEDS: METOPROLOL 25 MG TAB GTB ×2 (09:32→22:04)
[2018-01-10] MEDS: ENOXAPARIN 40 MG/0.4 ML SYG SC (09:37)
[2018-01-10] MEDS: BETHANECHOL 10 MG TAB PO ×3 (09:37→21:58)
[2018-01-10] MEDS: TAMSULOSIN (SR) 0.4 MG CAP PO (21:58)
[2018-01-10] MEDS: ATORVASTATIN 20 MG TAB GTB (21:58)
[2018-01-11] MEDS: LANSOPRAZOLE 30 MG CAP GTB (06:00)
[2018-01-11] MEDS: ENOXAPARIN 40 MG/0.4 ML SYG SC (09:00)
[2018-01-11] MEDS: COLLAGENASE 5 GM (UD JAR) TOP (09:00)
[2018-01-11] MEDS: ASPIRIN 81 MG TAB GTB (09:50)
[2018-01-11] MEDS: BETHANECHOL 10 MG TAB PO ×2 (09:50→13:00)
[2018-01-11] MEDS: ESCITALOPRAM 10 MG TAB PO (09:50)
[2018-01-11] MEDS: METOPROLOL 25 MG TAB GTB (09:51)
[2018-01-11] MEDS: FUROSEMIDE 20 MG TAB GTB (09:51)
[2018-01-11] MEDS: AMLODIPINE 5 MG TAB GTB (09:51)
[2018-01-11] MEDS: ASCORBIC ACID 500 MG TAB GTB (09:51)
== END 2018-01-11 15:00 | disposition home health service (06) | DRG 56 ==
LOC: VRC 12-23 16:36
PROC: 0DB68ZX Excision of Stomach, Via Natural or Artificial Opening Endoscopic, Diagnostic (ICD-10-PCS; principal; 2018-01-04 16:00)
DX: I69.391 Dysphagia following cerebral infarction (principal); J18.9 Pneumonia, unspecified organism; R13.12 Dysphagia, oropharyngeal phase; G20 Parkinson's disease; Z74.09 Other reduced mobility; K22.4 Dyskinesia of esophagus; F01.50 Vascular dementia, unspecified severity, without behavioral disturbance, psychotic disturbance, mood disturbance, and anxiety; F41.9 Anxiety disorder, unspecified; G31.84 Mild cognitive impairment of uncertain or unknown etiology; F06.31 Mood disorder due to known physiological condition with depressive features; F06.8 Other specified mental disorders due to known physiological condition; L89.152 Pressure ulcer of sacral region, stage 2; Z85.3 Personal history of malignant neoplasm of breast; I11.0 Hypertensive heart disease with heart failure; I50.9 Heart failure, unspecified; K29.70 Gastritis, unspecified, without bleeding; Z93.1 Gastrostomy status; R97.0 Elevated carcinoembryonic antigen [CEA]; Z66 Do not resuscitate
CPT/HCPCS: 71045; 76700; 80048; 80053; 81001; 82270; 82378; 82607; 82746; 83540; 83735; 84100; 84484; 85025; 85045; 87075; 87081; 87086; 88305; 88312; 92507; 92523; 92526; 92610; 93005; 97110; 97112; 97116; 97163; 97167; 97530; 97535; 97542

== ENCOUNTER → 2018-03-30 | Day surgery (SDC) | payer MEDICARE, OTHER | END | disposition home or self-care (01) | LOC: GIL 09:27 | DX: Z43.1 Encounter for attention to gastrostomy (principal); I69.391 Dysphagia following cerebral infarction; R13.10 Dysphagia, unspecified; E78.5 Hyperlipidemia, unspecified ==